=== PATIENT | female | born 1955 | race Caucasian/White ===

== ENCOUNTER 2017-07-08 18:55 | Emergency (ER) | payer MEDICARE, MEDICAID ==
[~2017-07-08] VITALS: Ht 157.5 cm; Wt 88.0 kg
[~2017-07-08 18:55] MED LIST: ALPR0.25 PO; AMLO10TA80 PO; ASPI-1158 PO; ATOR40TA70 PO; DOCU-150 PO; DOXA4TAB3 PO; Docusate Sodium PO; HYDR-3782 PO; LISI-604 PO; LOSA25TA3 PO; METO25TA6 PO; OMEP20CA10 PO; PRED10TA PO; TRIA0.252 PO; [UNRECOGNIZED DRUG - CODE] PO
[2017-07-08] MEDS ORDERED: KETOROLAC 30MG/ML VIAL IV STA (21:06)
[2017-07-08] MEDS ORDERED: ONDANSETRON HCL 4MG/2ML VIAL IV STA (21:06)
[2017-07-08] MEDS ORDERED: SODIUM CHLORIDE 0.9% 1,000 ML IV ONE (21:06)
[2017-07-08 21:30] LABS: BASOPHILS % 0.8 % (0.0-2.0); EOSINOPHILS % 2.6 % (0.0-5.0); HEMATOCRIT. 38.7 % (36.0-48.0); HEMOGLOBIN. 12.5 g/dL (12.0-16.0); LYMPHOCYTES % 28.7 % (20.0-50.0); MEAN CORPUSCULAR HEMOGLOBIN 27.9 pg (28.0-32.0); MEAN PLATELET VOLUME 8.2 fl (7.4-10.4); NEUTROPHILS % 60.9 % (40.0-76.0); PLATELET 288 x1000/uL (130-400); RED CELL DISTRIBUTION WIDTH 14.5 % (11.6-14.6)
[2017-07-08 21:40] LABS: CHLORIDE 106 mEq/L (98-107)
[2017-07-08] MEDS ORDERED: METOPROLOL TARTRATE 50MG TABLET PO ONE (21:45)
[2017-07-08 22:07] LABS: TROPONIN I < 0.02 ng/mL (0.00-0.04)
[2017-07-08 22:15] LABS: CLARITY URINE CLEAR (CLEAR); COLOR URINE YELLOW (YELLOW); KETONES URINE NEGATIVE (NEGATIVE); LEUKOCYTE ESTERASE URINE NEGATIVE (NEGATIVE); NITRITE URINE NEGATIVE (NEGATIVE); OCCULT BLOOD URINE 1+ (NEGATIVE); PH URINE 5.5 (4.5-8.0); PROTEIN URINE NEGATIVE (NEGATIVE); SPECIFIC GRAVITY URINE 1.019 (1.005-1.030); UROBILINOGEN URINE 0.2 E.U./dL (0.2-1.0)
[2017-07-08] MEDS ORDERED: IOHEXOL-300 100 ML BOTTLE ONE (22:20)
[2017-07-09 01:30] VITALS: BP 140/83
== END 2017-07-09 01:44 | disposition home or self-care (01) ==
LOC: ER 21:14
DX: R10.11 Right upper quadrant pain (principal); R07.9 Chest pain, unspecified; I10 Essential (primary) hypertension; R11.0 Nausea; E78.00 Pure hypercholesterolemia, unspecified; Z90.49 Acquired absence of other specified parts of digestive tract; Z79.82 Long term (current) use of aspirin; Z98.890 Other specified postprocedural states
CPT/HCPCS: 36415; 71045; 71260; 74177; 80053; 81003; 83690; 83880; 84484; 85025; 93005; 96361; 96374; 96375; 99285; J1885; J2405; J7030; Q9967

== ENCOUNTER 2017-07-13 10:01 | Inpatient (IN) | payer MEDICARE, MEDICAID ==
[~2017-07-13] VITALS: Ht 157.5 cm; Wt 95.3 kg
[2017-07-13] MEDS ORDERED: MORPHINE SULFATE 4 MG/ML CPJ (NOT FOR IM USE) IV STA (11:59)
[2017-07-13] MEDS ORDERED: PANTOPRAZOLE SODIUM 40 MG/VIAL IV STA (11:59)
[2017-07-13] MEDS ORDERED: ONDANSETRON HCL 4MG/2ML VIAL IV STA (11:59)
[2017-07-13] MEDS ORDERED: SODIUM CHLORIDE 0.9% 1,000 ML IV ONE ×2 (11:59→14:45)
[2017-07-13 13:16] LABS: BASOPHILS % 0.7 % (0.0-2.0); EOSINOPHILS % 0.4 % (0.0-5.0); HEMOGLOBIN. 13.5 g/dL (12.0-16.0); LYMPHOCYTES % 18.7 % (20.0-50.0); MEAN CORPUSCULAR HEMOGLOBIN 27.6 pg (28.0-32.0); MEAN CORPUSCULAR VOLUME 85.8 fL (81.0-99.0); MEAN PLATELET VOLUME 8.3 fl (7.4-10.4); NEUTROPHILS % 75.2 % (40.0-76.0); PARTIAL THROMBOPLASTIN TIME 25.4 sec (23.4-31.0); PLATELET 339 x1000/uL (130-400); PROTHROMBIN TIME 10.8 sec (9.4-11.6); RED CELL DISTRIBUTION WIDTH 14.7 % (11.6-14.6)
[2017-07-13 13:18] LABS: CHLORIDE 106 mEq/L (98-107)
[2017-07-13] MEDS ORDERED: MORPHINE SULFATE 4 MG/ML CPJ (NOT FOR IM USE) IV NR (14:45)
[2017-07-13] MEDS ORDERED: KETOROLAC 30MG/ML VIAL IV ONE (14:45)
[2017-07-13 16:59] LABS: CLARITY URINE CLOUDY (CLEAR); COLOR URINE ORANGE (YELLOW); KETONES URINE NEGATIVE (NEGATIVE); LEUKOCYTE ESTERASE URINE NEGATIVE (NEGATIVE); NITRITE URINE NEGATIVE (NEGATIVE); OCCULT BLOOD URINE 3+ (NEGATIVE); PROTEIN URINE TRACE (NEGATIVE); SPECIFIC GRAVITY URINE 1.018 (1.005-1.030); UROBILINOGEN URINE 0.2 E.U./dL (0.2-1.0)
[2017-07-13] MEDS ORDERED: CLONIDINE 0.1MG TABLET PO PRN (17:15)
[2017-07-13] MEDS ORDERED: HYDROMORPHONE 10 MG/ML IV SCH (17:15)
[2017-07-13] MEDS ORDERED: DIPHENHYDRAMINE 50MG/ML VIAL IV PRN (17:15)
[2017-07-13] MEDS: ONDANSETRON HCL 4MG/2ML VIAL IV PRN (17:29)
[2017-07-13] MEDS: SODIUM CHLORIDE 0.45% 1,000 ML IV SCH (18:30)
[2017-07-13 21:55] VITALS: BP 142/83
[2017-07-13 22:00] VITALS: BP 142/83
[2017-07-13] MEDS ORDERED: LEVO25TA7 PO (22:17)
[2017-07-13] MEDS ORDERED: HYDROMORPHONE HCL/PF 2MG/ML CPJ IV PRN ×2 (23:00→23:15)
[2017-07-14] VITALS: BP 111/58
[2017-07-14 04:02] VITALS: BP 153/91
[2017-07-14] MEDS: SODIUM CHLORIDE 0.45% 1,000 ML IV SCH ×2 (04:10→15:33)
[2017-07-14] MEDS: ONDANSETRON HCL 4MG/2ML VIAL IV PRN (06:37)
[2017-07-14] MEDS: LEVOTHYROXINE SODIUM 25MCG TABLET PO SCH (06:38)
[2017-07-14 07:14] LABS: BASOPHILS % 0.5 % (0.0-2.0); EOSINOPHILS % 2.3 % (0.0-5.0); HEMATOCRIT. 37.9 % (36.0-48.0); HEMOGLOBIN. 12.4 g/dL (12.0-16.0); LYMPHOCYTES % 22.1 % (20.0-50.0); MEAN CORPUSCULAR HEMOGLOBIN 28.5 pg (28.0-32.0); MEAN CORPUSCULAR VOLUME 87.2 fL (81.0-99.0); MEAN PLATELET VOLUME 8.2 fl (7.4-10.4); MONOCYTES % 6.1 % (2.0-8.0); PLATELET 300 x1000/uL (130-400); RED BLOOD CELL COUNT 4.34 mill/uL (4.2-5.4); RED CELL DISTRIBUTION WIDTH 14.2 % (11.6-14.6)
[2017-07-14 08:00] VITALS: BP 135/83
[2017-07-14 08:40] LABS: CHLORIDE 108 mEq/L (98-107)
[2017-07-14] MEDS: METOPROLOL TARTRATE 25MG TABLET PO SCH ×2 (09:05→18:05)
[2017-07-14] MEDS ORDERED: CEFTRIAXONE 1 G PREMIX 50 ML IV SCH (11:00)
[2017-07-14 12:00] VITALS: BP 140/83
[2017-07-14] MEDS ORDERED: CEFTRIAXONE 1,000 MG in DEXTROSE 5% WATER 50 ML IV SCH (14:00)
[2017-07-14] MEDS: CEFTRIAXONE 1 G PREMIX 50 ML IV SCH (15:33)
[2017-07-14] MEDS: DOCUSATE SODIUM 250MG CAPSULE PO SCH (15:44)
[2017-07-14 16:00] VITALS: BP 149/82
[2017-07-14] MEDS: PHENYLEPHRINE/SHK LV/MO/PET,WH RECTAL OINT 30GM PR SCH (18:06)
[2017-07-14] MEDS: TAMSULOSIN HCL 0.4MG SR CAPSULE PO SCH (18:10)
[2017-07-14 20:00] VITALS: BP 108/76
[2017-07-14] MEDS: ATORVASTATIN CALCIUM 40MG TABLET PO SCH (21:57)
[2017-07-15] VITALS: BP 116/63
[2017-07-15] MEDS: PHENYLEPHRINE/SHK LV/MO/PET,WH RECTAL OINT 30GM PR SCH ×5 (01:15→23:53)
[2017-07-15 04:00] VITALS: BP 125/78
[2017-07-15] MEDS: SODIUM CHLORIDE 0.45% 1,000 ML IV SCH ×2 (06:23→09:15)
[2017-07-15] MEDS: LEVOTHYROXINE SODIUM 25MCG TABLET PO SCH (06:23)
[2017-07-15 07:17] LABS: BASOPHILS % 0.3 % (0.0-2.0); EOSINOPHILS % 3.3 % (0.0-5.0); HEMATOCRIT. 35.7 % (36.0-48.0); HEMOGLOBIN. 11.5 g/dL (12.0-16.0); LYMPHOCYTES % 26.8 % (20.0-50.0); MEAN CORPUSCULAR HEMOGLOBIN 28.2 pg (28.0-32.0); MEAN CORPUSCULAR VOLUME 87.3 fL (81.0-99.0); MEAN PLATELET VOLUME 8.6 fl (7.4-10.4); MONOCYTES % 6.4 % (2.0-8.0); NEUTROPHILS % 63.2 % (40.0-76.0); PLATELET 283 x1000/uL (130-400); RED BLOOD CELL COUNT 4.09 mill/uL (4.2-5.4); RED CELL DISTRIBUTION WIDTH 14.5 % (11.6-14.6)
[2017-07-15 08:00] VITALS: BP 136/78
[2017-07-15 08:15] LABS: CHLORIDE 108 mEq/L (98-107)
[2017-07-15] MEDS: METOPROLOL TARTRATE 25MG TABLET PO SCH ×2 (09:45→17:26)
[2017-07-15] MEDS: DOCUSATE SODIUM 250MG CAPSULE PO SCH (09:45)
[2017-07-15] MEDS: TAMSULOSIN HCL 0.4MG SR CAPSULE PO SCH (09:46)
[2017-07-15] MEDS ORDERED: SORBITOL 70% SOLN 30ML PO NR ×3 (11:15→18:15)
[2017-07-15 12:00] VITALS: BP 143/72
[2017-07-15] MEDS ORDERED: NA PHOS,M-B/NA PHOS,DI-BA ENEMA 118ML PR NR (14:15)
[2017-07-15] MEDS: CEFTRIAXONE 1 G PREMIX 50 ML IV SCH (15:32)
[2017-07-15 16:00] VITALS: BP 123/75
[2017-07-15] MEDS: DEXT 5%/0.45% NACL KCL 20MEQ/L 1,000 ML IV SCH (20:32)
[2017-07-15] MEDS: ATORVASTATIN CALCIUM 40MG TABLET PO SCH (20:32)
[2017-07-16] MEDS: PHENYLEPHRINE/SHK LV/MO/PET,WH RECTAL OINT 30GM PR SCH ×3 (05:34→17:30)
[2017-07-16 05:58] LABS: INR 1.1; PARTIAL THROMBOPLASTIN TIME 26.1 sec (23.4-31.0); PROTHROMBIN TIME 11.1 sec (9.4-11.6)
[2017-07-16 06:18] LABS: BASOPHILS % 0.4 % (0.0-2.0); EOSINOPHILS % 2.9 % (0.0-5.0); HEMATOCRIT. 35.6 % (36.0-48.0); HEMOGLOBIN. 11.6 g/dL (12.0-16.0); LYMPHOCYTES % 27.1 % (20.0-50.0); MEAN CORPUSCULAR HEMOGLOBIN 28.1 pg (28.0-32.0); MEAN CORPUSCULAR VOLUME 86.4 fL (81.0-99.0); MEAN PLATELET VOLUME 8.9 fl (7.4-10.4); MONOCYTES % 6.1 % (2.0-8.0); NEUTROPHILS % 63.5 % (40.0-76.0); PLATELET 293 x1000/uL (130-400); RED BLOOD CELL COUNT 4.12 mill/uL (4.2-5.4); RED CELL DISTRIBUTION WIDTH 14.5 % (11.6-14.6)
[2017-07-16] MEDS: LEVOTHYROXINE SODIUM 25MCG TABLET PO SCH (07:20)
[2017-07-16 07:52] LABS: CHLORIDE 110 mEq/L (98-107)
[2017-07-16 08:00] VITALS: BP 142/84
[2017-07-16] MEDS ORDERED: NA PHOS,M-B/NA PHOS,DI-BA ENEMA 118ML PR NR (08:15)
[2017-07-16] MEDS: DOCUSATE SODIUM 250MG CAPSULE PO SCH (09:00)
[2017-07-16] MEDS ORDERED: FENTANYL CITRATE/PF 50MCG/ML 2ML VIAL ONE (10:18)
[2017-07-16] MEDS ORDERED: MIDAZOLAM HCL 5 MG/5 ML VIAL ONE (10:19)
[2017-07-16] MEDS ORDERED: SIMETHICONE 40 MG/0.6 ML 30ML ONE (10:19)
[2017-07-16] MEDS ORDERED: DIPHENHYDRAMINE 50MG/ML VIAL ONE (11:02)
[2017-07-16] MEDS ORDERED: POTASSIUM CHLORIDE 20MEQ TABLET SR PO SCH (12:15)
[2017-07-16] MEDS: CEFTRIAXONE 1 G PREMIX 50 ML IV SCH (12:56)
[2017-07-16] MEDS: TAMSULOSIN HCL 0.4MG SR CAPSULE PO SCH (13:03)
[2017-07-16] MEDS: METOPROLOL TARTRATE 25MG TABLET PO SCH ×2 (13:04→20:59)
[2017-07-16] MEDS: DEXT 5%/0.45% NACL KCL 20MEQ/L 1,000 ML IV SCH (15:46)
[2017-07-16 16:00] VITALS: BP 135/84
[2017-07-16 17:38] LABS: CHLORIDE 109 mEq/L (98-107)
[2017-07-16] MEDS ORDERED: POTASSIUM CHLORIDE 20MEQ/PACKET PO NR (19:00)
[2017-07-16 20:00] VITALS: BP 112/68
[2017-07-16] MEDS: ATORVASTATIN CALCIUM 40MG TABLET PO SCH (20:58)
[2017-07-17] VITALS: BP 128/77
[2017-07-17] MEDS: PHENYLEPHRINE/SHK LV/MO/PET,WH RECTAL OINT 30GM PR SCH ×2 (00:42→06:24)
[2017-07-17 04:00] VITALS: BP 131/78
[2017-07-17 06:15] LABS: BASOPHILS % 0.7 % (0.0-2.0); EOSINOPHILS % 3.4 % (0.0-5.0); HEMATOCRIT. 36.5 % (36.0-48.0); LYMPHOCYTES % 28.9 % (20.0-50.0); MEAN CORPUSCULAR HEMOGLOBIN 28.7 pg (28.0-32.0); MEAN CORPUSCULAR VOLUME 87.5 fL (81.0-99.0); MONOCYTES % 6.3 % (2.0-8.0); NEUTROPHILS % 60.7 % (40.0-76.0); PLATELET 315 x1000/uL (130-400); RED BLOOD CELL COUNT 4.17 mill/uL (4.2-5.4); RED CELL DISTRIBUTION WIDTH 14.2 % (11.6-14.6)
[2017-07-17] MEDS: LEVOTHYROXINE SODIUM 25MCG TABLET PO SCH (06:24)
[2017-07-17 06:43] LABS: CHLORIDE 110 mEq/L (98-107)
[2017-07-17 08:00] VITALS: BP 149/86
[2017-07-17] MEDS: TAMSULOSIN HCL 0.4MG SR CAPSULE PO SCH (08:52)
[2017-07-17] MEDS: METOPROLOL TARTRATE 25MG TABLET PO SCH ×2 (08:52→21:03)
[2017-07-17] MEDS: DOCUSATE SODIUM 250MG CAPSULE PO SCH (08:54)
[2017-07-17] MEDS ORDERED: HYDROMORPHONE HCL/PF 2MG/ML CPJ IV PRN (11:20)
[2017-07-17 11:59] VITALS: BP 119/48
[2017-07-17] MEDS ORDERED: FENTANYL CITRATE/PF 50MCG/ML 2ML VIAL ONE (15:32)
[2017-07-17] MEDS ORDERED: PROPOFOL 200MG/20ML VIAL IV ONE ×2 (15:32→15:54)
[2017-07-17] MEDS ORDERED: MIDAZOLAM HCL 2 MG/2 ML VIAL ONE (15:32)
[2017-07-17] MEDS ORDERED: IOPAMIDOL 61% 300/15 ML VIAL IT ONE (15:43)
[2017-07-17] MEDS ORDERED: CEFTRIAXONE 1 G PREMIX 50 ML IV ONE (15:47)
[2017-07-17] MEDS ORDERED: DEXAMETHASONE 4MG/ML 1ML VIAL ONE (15:50)
[2017-07-17] MEDS ORDERED: ONDANSETRON HCL 4MG/2ML VIAL ONE (15:50)
[2017-07-17] MEDS ORDERED: METOCLOPRAMIDE HCL 10MG/2ML VIAL IV SCH (17:45)
[2017-07-17] MEDS: HYDROMORPHONE HCL/PF 2MG/ML CPJ IV PRN ×2 (17:53→17:59)
[2017-07-17] MEDS: DEXT 5%/0.45% NACL KCL 10MEQ/L 1,000 ML IV SCH (18:33)
[2017-07-17 20:00] VITALS: BP 116/66
[2017-07-17] MEDS: ATORVASTATIN CALCIUM 40MG TABLET PO SCH (21:03)
[2017-07-17] MEDS: ONDANSETRON HCL 4MG/2ML VIAL IV PRN (22:40)
[2017-07-18] VITALS: BP 145/82
[2017-07-18 04:00] VITALS: BP 145/79
[2017-07-18] MEDS: LEVOTHYROXINE SODIUM 25MCG TABLET PO SCH (06:20)
[2017-07-18] MEDS: DEXT 5%/0.45% NACL KCL 10MEQ/L 1,000 ML IV SCH (06:21)
[2017-07-18 06:42] LABS: CHLORIDE 106 mEq/L (98-107)
[2017-07-18 06:44] LABS: BASOPHILS % 0.4 % (0.0-2.0); HEMATOCRIT. 38.5 % (36.0-48.0); HEMOGLOBIN. 12.5 g/dL (12.0-16.0); LYMPHOCYTES % 12.3 % (20.0-50.0); MEAN CORPUSCULAR HEMOGLOBIN 28.3 pg (28.0-32.0); MEAN CORPUSCULAR VOLUME 86.9 fL (81.0-99.0); MONOCYTES % 4.5 % (2.0-8.0); NEUTROPHILS % 82.8 % (40.0-76.0); PLATELET 313 x1000/uL (130-400); RED BLOOD CELL COUNT 4.42 mill/uL (4.2-5.4)
[2017-07-18 08:00] VITALS: BP 159/84
[2017-07-18] MEDS: TAMSULOSIN HCL 0.4MG SR CAPSULE PO SCH (09:08)
[2017-07-18] MEDS: DOCUSATE SODIUM 250MG CAPSULE PO SCH (09:08)
[2017-07-18] MEDS: METOPROLOL TARTRATE 25MG TABLET PO SCH (09:09)
[2017-07-18 12:00] VITALS: BP 152/84
[2017-07-18] MEDS ORDERED: LOSARTAN POTASSIUM 25 MG TABLET PO SCH (13:00)
[2017-07-18] MEDS ORDERED: AMLODIPINE 10MG TABLET PO SCH (13:00)
[2017-07-18] MEDS ORDERED: HYDROXYZINE 10 MG TABLET PO SCH (13:00)
[2017-07-18] MEDS ORDERED: ASPIRIN 81MG EC TABLET PO SCH (13:00)
[2017-07-18] MEDS ORDERED: DOXAZOSIN MESYLATE 4MG TABLET PO SCH (13:00)
[2017-07-18 13:35] VITALS: BP 152/84
[2017-07-18] MEDS ORDERED: ATORVASTATIN CALCIUM 40MG TABLET PO SCH (17:00)
[2017-07-18] MEDS ORDERED: PREDNISONE 10MG TABLET PO SCH (17:00)
[2017-07-19] MEDS ORDERED: DOCUSATE SODIUM 100MG CAPSULE PO SCH (09:00)
== END 2017-07-18 14:39 | disposition home or self-care (01) | DRG 378 ==
LOC: ER 10:01 → 6EST 16:15 → ENRESERV 21:26
PROVIDERS: ADMIT Internal Medicine; ATTEND Internal Medicine
PROC: 0DBN8ZX Excision of Sigmoid Colon, Via Natural or Artificial Opening Endoscopic, Diagnostic (ICD-10-PCS; principal; 2017-07-16 10:00)
PROC: 0TF48ZZ Fragmentation in Left Kidney Pelvis, Via Natural or Artificial Opening Endoscopic (ICD-10-PCS; 2017-07-17)
PROC: 0T778DZ Dilation of Left Ureter with Intraluminal Device, Via Natural or Artificial Opening Endoscopic (ICD-10-PCS; 2017-07-17)
PROC: BT1F1ZZ Fluoroscopy of Left Kidney, Ureter and Bladder using Low Osmolar Contrast (ICD-10-PCS; 2017-07-17)
PROC: 02HV33Z Insertion of Infusion Device into Superior Vena Cava, Percutaneous Approach (ICD-10-PCS; 2017-07-17)
PROC: B5181ZA Fluoroscopy of Superior Vena Cava using Low Osmolar Contrast, Guidance (ICD-10-PCS; 2017-07-17)
PROC: B548ZZA Ultrasonography of Superior Vena Cava, Guidance (ICD-10-PCS; 2017-07-17)
DX: K92.2 Gastrointestinal hemorrhage, unspecified (principal); N13.2 Hydronephrosis with renal and ureteral calculous obstruction; E11.65 Type 2 diabetes mellitus with hyperglycemia; K76.0 Fatty (change of) liver, not elsewhere classified; N39.0 Urinary tract infection, site not specified; K64.4 Residual hemorrhoidal skin tags; D12.5 Benign neoplasm of sigmoid colon; I10 Essential (primary) hypertension; E03.9 Hypothyroidism, unspecified; K59.00 Constipation, unspecified; E78.00 Pure hypercholesterolemia, unspecified; E78.5 Hyperlipidemia, unspecified; E66.9 Obesity, unspecified; Z68.38 Body mass index [BMI] 38.0-38.9, adult; Z79.899 Other long term (current) drug therapy; Z90.49 Acquired absence of other specified parts of digestive tract; Z79.82 Long term (current) use of aspirin; Q74.2 Other congenital malformations of lower limb(s), including pelvic girdle; K63.5 Polyp of colon
CPT/HCPCS: 36415; 36569; 74018; 74176; 76937; 77001; 80048; 80053; 81003; 82270; 83036; 83690; 83735; 85025; 85610; 85730; 86850; 86900; 88305; 96361; 96365; 96375; 99285; C1725; C1893; C9113; J0696; J1100; J1170; J1200; J1885; J2250; J2270; J2405; J2704; J3010; J7030; J7060; Q9967

== ENCOUNTER 2018-05-09 12:13 | Emergency (ER) | payer MEDICARE, MEDICAID ==
[~2018-05-09] VITALS: Ht 157.5 cm; Wt 82.0 kg
[~2018-05-09 12:13] MED LIST changes: -ALPR0.25 PO; +DOCU-138 PO; -DOCU-150 PO; -Docusate Sodium PO; +LEVO25TA7 PO
[2018-05-09] MEDS ORDERED: KETOROLAC 60MG/2ML VIAL IM STA (15:24)
[2018-05-09 17:26] LABS: BASOPHILS % 0.5 % (0.0-2.0); EOSINOPHILS % 2.1 % (0.0-5.0); HEMATOCRIT. 38.9 % (36.0-48.0); HEMOGLOBIN. 12.8 g/dL (12.0-16.0); LYMPHOCYTES % 27.9 % (20.0-50.0); MEAN CORPUSCULAR HEMOGLOBIN 28.2 pg (28.0-32.0); MEAN CORPUSCULAR VOLUME 85.8 fL (81.0-99.0); MEAN PLATELET VOLUME 8.5 fl (7.4-10.4); MONOCYTES % 5.9 % (2.0-8.0); NEUTROPHILS % 63.6 % (40.0-76.0); PLATELET 284 x1000/uL (130-400); RED BLOOD CELL COUNT 4.53 mill/uL (4.2-5.4); RED CELL DISTRIBUTION WIDTH 14.6 % (11.6-14.6)
[2018-05-09 17:33] LABS: CHLORIDE 106 mEq/L (98-107)
[2018-05-09 18:18] LABS: CLARITY URINE CLOUDY (CLEAR); COLOR URINE YELLOW (YELLOW); KETONES URINE NEGATIVE (NEGATIVE); LEUKOCYTE ESTERASE URINE TRACE (NEGATIVE); NITRITE URINE NEGATIVE (NEGATIVE); OCCULT BLOOD URINE 2+ (NEGATIVE); PROTEIN URINE NEGATIVE (NEGATIVE); SPECIFIC GRAVITY URINE 1.019 (1.005-1.030); UROBILINOGEN URINE 0.2 E.U./dL (0.2-1.0)
[2018-05-09] MEDS ORDERED: POTASSIUM CHLORIDE 20MEQ TABLET SR PO ONE (18:30)
[2018-05-09] MEDS ORDERED: KETOROLAC 60MG/2ML VIAL IM ONE (19:00)
[2018-05-09] MEDS ORDERED: KETOROLAC 30MG/ML VIAL ONE (19:03)
[2018-05-09 20:07] VITALS: BP 152/90
== END 2018-05-09 20:10 | disposition home or self-care (01) ==
LOC: ER 13:38
DX: N95.0 Postmenopausal bleeding (principal); N93.8 Other specified abnormal uterine and vaginal bleeding; E87.6 Hypokalemia; E78.00 Pure hypercholesterolemia, unspecified; I10 Essential (primary) hypertension; Z90.49 Acquired absence of other specified parts of digestive tract; Z98.890 Other specified postprocedural states; Z79.899 Other long term (current) drug therapy
CPT/HCPCS: 36415; 74176; 80053; 81003; 85025; 96372; 99284; J1885

== ENCOUNTER 2019-01-25 13:33 | Emergency (ER) | payer MEDICARE, MEDICAID ==
[~2019-01-25] VITALS: Ht 162.6 cm; Wt 90.0 kg
[~2019-01-25 13:33] MED LIST changes: -OMEP20CA10 PO; +OMEP20CA5 PO
[2019-01-25] MEDS ORDERED: KETOROLAC 30MG/ML VIAL IV STA (13:58)
[2019-01-25] MEDS ORDERED: SODIUM CHLORIDE 0.9% 1,000 ML IV ONE (13:58)
[2019-01-25 15:03] LABS: PROTHROMBIN TIME 10.4 sec (9.6-11.0)
[2019-01-25 15:10] LABS: HEMATOCRIT. 39.7 % (36.0-48.0); HEMOGLOBIN. 13.3 g/dL (12.0-16.0); MEAN CORPUSCULAR HEMOGLOBIN 29.4 pg (28.0-32.0); MEAN CORPUSCULAR VOLUME 87.9 fL (81.0-99.0); MEAN PLATELET VOLUME 8.5 fl (7.4-10.4); NEUTROPHILS % 65.6 % (40.0-76.0); PLATELET 283 x1000/uL (130-400); RED BLOOD CELL COUNT 4.52 mill/uL (4.2-5.4); RED CELL DISTRIBUTION WIDTH 14.9 % (11.6-14.6)
[2019-01-25 15:11] LABS: BASOPHILS % 0.4 % (0.0-2.0); EOSINOPHILS % 1.6 % (0.0-5.0); LYMPHOCYTES % 26.9 % (20.0-50.0); MONOCYTES % 5.5 % (2.0-8.0)
[2019-01-25 15:15] LABS: CLARITY URINE CLOUDY (CLEAR); COLOR URINE YELLOW (YELLOW)
[2019-01-25 15:16] LABS: KETONES URINE NEGATIVE (NEGATIVE); PROTEIN URINE TRACE (NEGATIVE); SPECIFIC GRAVITY URINE 1.017 (1.005-1.030)
[2019-01-25 15:17] LABS: LEUKOCYTE ESTERASE URINE 3+ (NEGATIVE); NITRITE URINE NEGATIVE (NEGATIVE); OCCULT BLOOD URINE 2+ (NEGATIVE)
[2019-01-25 15:21] LABS: CHLORIDE 109 mEq/L (98-107)
[2019-01-25 16:50] VITALS: BP 153/68
== END 2019-01-25 17:04 | disposition home or self-care (01) ==
LOC: ER 13:33
DX: N93.8 Other specified abnormal uterine and vaginal bleeding (principal); N30.00 Acute cystitis without hematuria; E78.00 Pure hypercholesterolemia, unspecified; I10 Essential (primary) hypertension; Z90.49 Acquired absence of other specified parts of digestive tract; Z79.899 Other long term (current) drug therapy; Z79.82 Long term (current) use of aspirin
CPT/HCPCS: 36415; 80053; 81003; 85025; 85610; 87086; 96361; 96374; 99283; J1885; J7030

== ENCOUNTER 2022-02-20 08:26 | Inpatient (IN) | payer MEDICARE, MEDICAID ==
[~2022-02-20] VITALS: Ht 157.5 cm; Wt 88.5 kg
[~2022-02-20 08:26] MED LIST changes: -ASPI-1158 PO; +ASPI-1406 PO; +CIPR-263 MT; +HYDR-4001 MT; +IBUP-2028 MT; -LISI-604 PO; +LISI20TA31 PO; +OMEP20CA14 PO; -OMEP20CA5 PO; +TAMS-11 MT
[2022-02-20] MEDS ORDERED: MORPHINE SULFATE 4 MG/ML CPJ (NOT FOR IM USE) IV STA (08:29)
[2022-02-20 11:08] LABS: BASOPHILS % 0.9 % (0.0-2.0); EOSINOPHILS % 0.8 % (0.0-5.0); HEMATOCRIT. 34.6 % (36.0-48.0); HEMOGLOBIN. 11.5 g/dL (12.0-16.0); LYMPHOCYTES % 15.9 % (20.0-50.0); MEAN CORPUSCULAR HEMOGLOBIN 29.5 pg (28.0-32.0); MEAN CORPUSCULAR VOLUME 88.5 fL (81.0-99.0); MONOCYTES % 7.1 % (2.0-8.0); NEUTROPHILS % 75.3 % (40.0-76.0); PLATELET 273 x1000/uL (130-400); RED CELL DISTRIBUTION WIDTH 14.8 % (11.6-14.6)
[2022-02-20] MEDS: MORPHINE SULFATE 4 MG/ML CPJ (NOT FOR IM USE) IV NR ×2 (11:19→13:19)
[2022-02-20 11:39] LABS: CHLORIDE 105 mEq/L (98-107)
[2022-02-20 14:00] VITALS: BP 123/64
[2022-02-20 14:10] VITALS: BP 159/74
[2022-02-20] MEDS ORDERED: IPRATROPIUM/ALBUTEROL 0.5-3(2.5)MG/3ML NEB HHN PRN (14:15)
[2022-02-20] MEDS ORDERED: ONDANSETRON HCL 4MG/2ML INJ IV PRN (14:15)
[2022-02-20] MEDS ORDERED: NALOXONE HCL 0.4MG/ML VIAL IV PRN (14:15)
[2022-02-20] MEDS ORDERED: DIPHENHYDRAMINE 50MG/ML VIAL IV PRN (14:15)
[2022-02-20] MEDS ORDERED: ACETAMINOPHEN 325MG TABLET PO PRN (14:15)
[2022-02-20] MEDS: KETOROLAC 30MG/ML VIAL IV PRN (15:49)
[2022-02-20] MEDS: MORPHINE SULFATE 2 MG/ML CPJ (NOT FOR IM USE) IV PRN (15:49)
[2022-02-20 16:00] VITALS: BP 145/82
[2022-02-20] MEDS ORDERED: AMLO10TA80 PO (17:33)
[2022-02-20] MEDS ORDERED: LEVO25TA7 PO (17:33)
[2022-02-20] MEDS ORDERED: METO-411 PO (17:33)
[2022-02-20] MEDS ORDERED: ASPI-1497 PO (17:33)
[2022-02-20] MEDS ORDERED: ATOR40TA70 PO (17:33)
[2022-02-20 18:03] LABS: CLARITY URINE HAZY (CLEAR); COLOR URINE YELLOW (YELLOW)
[2022-02-20 18:04] LABS: KETONES URINE 2+ (NEGATIVE); NITRITE URINE NEGATIVE (NEGATIVE); OCCULT BLOOD URINE TRACE (NEGATIVE); PROTEIN URINE TRACE (NEGATIVE)
[2022-02-20 18:05] LABS: LEUKOCYTE ESTERASE URINE NEGATIVE (NEGATIVE); UROBILINOGEN URINE 0.2 E.U./dL (0.2-1.0)
[2022-02-20 20:00] VITALS: BP 167/102
[2022-02-21] VITALS: BP 120/64
[2022-02-21] MEDS: SODIUM CHLORIDE 0.9% 1,000 ML IV SCH ×2 (01:50→17:25)
[2022-02-21] MEDS: CEFTRIAXONE 1,000 MG in DEXTROSE 5% WATER 50 ML IV SCH ×2 (01:50→17:17)
[2022-02-21 04:00] VITALS: BP 127/58
[2022-02-21] MEDS: KETOROLAC 30MG/ML VIAL IV PRN ×2 (05:20→12:56)
[2022-02-21 08:00] VITALS: BP 137/70
[2022-02-21 08:12] LABS: BASOPHILS % 0.7 % (0.0-2.0); HEMATOCRIT. 33.8 % (36.0-48.0); HEMOGLOBIN. 11.3 g/dL (12.0-16.0); LYMPHOCYTES % 23.2 % (20.0-50.0); MEAN CORPUSCULAR HEMOGLOBIN 29.7 pg (28.0-32.0); MEAN CORPUSCULAR VOLUME 88.8 fL (81.0-99.0); MEAN PLATELET VOLUME 7.8 fl (7.4-10.4); MONOCYTES % 8.6 % (2.0-8.0); NEUTROPHILS % 62.5 % (40.0-76.0); PLATELET 230 x1000/uL (130-400); RED BLOOD CELL COUNT 3.81 mill/uL (4.2-5.4); RED CELL DISTRIBUTION WIDTH 14.9 % (11.6-14.6)
[2022-02-21 08:44] LABS: CHLORIDE 102 mEq/L (98-107)
[2022-02-21 12:00] VITALS: BP 125/69
[2022-02-21 16:00] VITALS: BP 129/65
[2022-02-21] MEDS ORDERED: HYDR-4001 MT (16:51)
[2022-02-21] MEDS ORDERED: POTASSIUM CHLORIDE 20MEQ TABLET SR PO NR (18:00)
[2022-02-21 20:00] VITALS: BP 160/75
[2022-02-22] VITALS: BP 185/94
[2022-02-22] MEDS: CLONIDINE 0.1MG TABLET PO PRN ×2 (00:39→20:24)
[2022-02-22] MEDS: SODIUM CHLORIDE 0.9% 1,000 ML IV SCH ×2 (03:13→16:15)
[2022-02-22 04:00] VITALS: BP 102/57
[2022-02-22] MEDS: MORPHINE SULFATE 2 MG/ML CPJ (NOT FOR IM USE) IV PRN ×2 (06:45→13:02)
[2022-02-22 08:00] VITALS: BP 108/66
[2022-02-22 16:00] VITALS: BP 112/80
[2022-02-22] MEDS: KETOROLAC 30MG/ML VIAL IV PRN (17:39)
[2022-02-22] MEDS: CEFTRIAXONE 1,000 MG in DEXTROSE 5% WATER 50 ML IV SCH (17:39)
[2022-02-22] MEDS ORDERED: MORPHINE SULFATE 4 MG/ML CPJ (NOT FOR IM USE) IV PRN (18:15)
[2022-02-22 20:45] VITALS: BP 205/112
[2022-02-23] VITALS (7 sets, daily range): BP systolic 124–163; BP diastolic 70–96
[2022-02-23] MEDS: SODIUM CHLORIDE 0.9% 1,000 ML IV SCH ×2 (06:13→17:15)
[2022-02-23 06:55] LABS: BASOPHILS % 0.7 % (0.0-2.0); EOSINOPHILS % 6.8 % (0.0-5.0); HEMATOCRIT. 37.2 % (36.0-48.0); HEMOGLOBIN. 12.3 g/dL (12.0-16.0); LYMPHOCYTES % 20.6 % (20.0-50.0); MEAN CORPUSCULAR HEMOGLOBIN 29.7 pg (28.0-32.0); MEAN PLATELET VOLUME 7.9 fl (7.4-10.4); MONOCYTES % 6.6 % (2.0-8.0); NEUTROPHILS % 65.3 % (40.0-76.0); PLATELET 235 x1000/uL (130-400); RED BLOOD CELL COUNT 4.14 mill/uL (4.2-5.4); RED CELL DISTRIBUTION WIDTH 14.7 % (11.6-14.6)
[2022-02-23 07:02] LABS: CHLORIDE 110 mEq/L (98-107)
[2022-02-23] MEDS ORDERED: POTASSIUM CHLORIDE 20MEQ TABLET SR PO NR ×2 (08:15→19:15)
[2022-02-23] MEDS ORDERED: ONDANSETRON 4MG ODT PO PRN (11:15)
[2022-02-23] MEDS ORDERED: HYDROCODONE/ACETAMINOPHEN 5/325MG TABLET PO PRN (18:30)
[2022-02-23] MEDS ORDERED: MORPHINE SULFATE 2 MG/ML CPJ (NOT FOR IM USE) IV PRN (18:30)
[2022-02-23] MEDS ORDERED: ACETAMINOPHEN 325MG TABLET PO PRN (18:30)
[2022-02-23] MEDS: CLONIDINE 0.1MG TABLET PO PRN (21:39)
[2022-02-24 04:00] VITALS: BP 124/79
[2022-02-24 05:45] LABS: BASOPHILS % 0.6 % (0.0-2.0); EOSINOPHILS % 5.9 % (0.0-5.0); HEMATOCRIT. 37.5 % (36.0-48.0); HEMOGLOBIN. 12.4 g/dL (12.0-16.0); LYMPHOCYTES % 21.9 % (20.0-50.0); MEAN CORPUSCULAR HEMOGLOBIN 29.5 pg (28.0-32.0); MEAN CORPUSCULAR VOLUME 89.5 fL (81.0-99.0); MEAN PLATELET VOLUME 7.9 fl (7.4-10.4); NEUTROPHILS % 64.6 % (40.0-76.0); PLATELET 262 x1000/uL (130-400); RED CELL DISTRIBUTION WIDTH 14.9 % (11.6-14.6)
[2022-02-24] MEDS: SODIUM CHLORIDE 0.9% 1,000 ML IV SCH (05:45)
[2022-02-24 08:00] VITALS: BP 128/91
[2022-02-24 08:20] LABS: CHLORIDE 107 mEq/L (98-107)
[2022-02-24] MEDS ORDERED: ACET325T52 PO (09:16)
[2022-02-24] MEDS ORDERED: HYDR-4001 MT (09:16)
[2022-02-24] MEDS ORDERED: ONDA4TAB11 PO (10:46)
[2022-02-24] MEDS ORDERED: OMEP20CA14 PO (10:46)
[2022-02-24 12:00] VITALS: BP 133/83
== END 2022-02-24 16:15 | disposition home health service (06) | DRG 690 ==
LOC: ER 08:26 → 7WST 10:51 → EDBEDREQ 10:53 → EDBEDREQTM 10:53 → ENRESERV 11:34
PROVIDERS: ADMIT Internal Medicine; ATTEND Internal Medicine
DX: N13.6 Pyonephrosis (principal); N20.0 Calculus of kidney; E03.9 Hypothyroidism, unspecified; I10 Essential (primary) hypertension; E78.00 Pure hypercholesterolemia, unspecified; E78.5 Hyperlipidemia, unspecified; Z90.710 Acquired absence of both cervix and uterus; Z90.49 Acquired absence of other specified parts of digestive tract; Z85.42 Personal history of malignant neoplasm of other parts of uterus; Z79.899 Other long term (current) drug therapy
CPT/HCPCS: 36415; 74176; 80048; 80053; 81003; 85025; 93970; 99285; C1893; J0696; J1885; J2270; J2405; J7030; J7060